=== PATIENT | male | born 1950 | race Caucasian/White ===

== ENCOUNTER 2017-09-09 14:28 | Outpatient (CLI) | payer MEDICARE, OTHER ==
[2017-09-09 12:51] LABS: BASOPHILS % (AUTO) 0.4 %; EOSINOPHILS # (AUTO) 0.2 10^3/uL (0.0-0.7); EOSINOPHILS % (AUTO) 4.2 %; HCT - HEMATOCRIT 38.8 % (42.0-52.0); LYMPHOCYTES # (AUTO) 1.8 10^3/uL (1.5-3.5); LYMPHOCYTES % (AUTO) 30.5 %; MEAN CORPUSCULAR HEMOGLOBIN 31.5 pg (27.0-31.0); MEAN CORPUSCULAR HGB CONC 33.6 g/dL (32.0-36.0); MEAN CORPUSCULAR VOLUME 93.8 fL (80.0-94.0); MEAN PLATELET VOLUME 9.1 fL (7.4-11.4); MONOCYTES # (AUTO) 0.6 10^3/uL (0.0-1.0); MONOCYTES % (AUTO) 9.5 %; NEUTROPHILS # (AUTO) 3.2 10^3/uL (1.5-6.6); NEUTROPHILS % (AUTO) 55.4 %; RED BLOOD COUNT 4.14 10^6/uL (4.70-6.10); RED CELL DISTRIBUTION WIDTH 13.5 % (12.0-15.0); UNCORRECTED WHITE BLOOD COUNT 5.8 x10^3/uL; WHITE BLOOD COUNT 5.8 x10^3/uL (4.8-10.8)
[2017-09-09 13:19] LABS: ALBUMIN/GLOBULIN RATIO 1.3 (1.0-2.2); BILIRUBIN,TOTAL 0.7 mg/dL (0.2-1.0); CALCIUM 9.5 mg/dL (8.5-10.3); CREATININE 0.7 mg/dL (0.6-1.2); POTASSIUM 4.5 mmol/L (3.5-5.0); TOTAL PROTEIN 7.7 g/dL (6.7-8.2); URIC ACID 6.4 mg/dL (2.6-7.2)
[2017-09-09 13:20] LABS: HEMOGLOBIN A1C 0.63 g/dL
== END 2017-09-09 14:29 | disposition home or self-care (01) ==
LOC: LAB.WCP 14:28
PROVIDERS: ATTEND Family Medicine
DX: I10 Essential (primary) hypertension (principal); R74.8 Abnormal levels of other serum enzymes; E11.9 Type 2 diabetes mellitus without complications; E78.5 Hyperlipidemia, unspecified; M25.551 Pain in right hip; M10.9 Gout, unspecified
CPT/HCPCS: 36415; 80053; 83036; 84550; 85025

== ENCOUNTER 2018-03-11 12:35 | Outpatient (CLI) | payer MEDICARE, OTHER ==
--- NOTE | 2018-03-12 22:09 | MRI Report ---
EXAM: MRI CERVICAL SPINE WITHOUT CONTRAST EXAM DATE: 03/11/2018 01:08 PM. CLINICAL HISTORY: Neck pain, bilateral upper extremity numbness, extremity pain. COMPARISONS: CR cervical spine 02/18/2018. TECHNIQUE: Multiplanar, multisequence T1-weighted and fluid-sensitive sequences of the cervical spine without contrast. Other: None. FINDINGS: Neurologic Structures: The visualized posterior fossa structures are unremarkable. No signal abnormal ity in the visualized spinal cord. Alignment: 1-2 mm anterolisthesis of C3 on C4. 2-3 mm retrolisthesis of C6 on C7. Bone Marrow: No gross fractures or bone lesions. No marrow edema. Interspace Levels/Facets: C1-C2: Unremarkable. C2-C3: Left greater than right facet arthropathy. No significant canal narrowing. Mild left foraminal narrowing. C3-C4: Anterolisthesis. Right greater than left uncovertebral hypertrophy. Right greater than left fa cet arthropathy. Mild to moderate right, mild left foraminal narrowing. C4-C5: Disk desiccation. Mild facet arthropathy. No significant canal or foraminal narrowing. C5-C6: Disk desiccation and mild disk height loss. Left greater than right uncovertebral hypertrophy. Mild to moderate left, mild right foraminal narrowing. Mild canal narrowing. C6-C7: Disk desiccation and mild disk height loss. Left greater than right uncovertebral hypertrophy. Moderate left, mild to moderate right foraminal narrowing. Mild canal narrowing. C7-T1: Disk desiccation. Mild facet arthropathy. No significant canal or foraminal narrowing. Musculature: Normal. No edema or fatty atrophy. Other: The paravertebral and prevertebral soft tissues are normal. IMPRESSION: 1. No significant spinal canal narrowing. 2. Grade 1 anterolisthesis of C3 on C4, grade 1 retrolisthesis of C6 on C7. 3. At C3-C4, mild to moderate right, mild left foraminal narrowing secondary to asymmetric facet arth ropathy. 4. At C5-C6, mild to moderate left, mild right foraminal narrowing secondary to asymmetric uncoverteb ral hypertrophy. 5. At C6-C7, moderate left and [id number] right foraminal narrowing secondary to asymmetric unc overtebral hypertrophy. [facility] Referring Provider Line: [phone] SITE ID: [id number]
== END 2018-03-11 12:36 | disposition home or self-care (01) ==
LOC: DI 12:35
PROVIDERS: ATTEND Family Medicine
DX: M43.12 Spondylolisthesis, cervical region (principal); M12.88 Other specific arthropathies, not elsewhere classified, other specified site; M89.48 Other hypertrophic osteoarthropathy, other site
CPT/HCPCS: 72141

== ENCOUNTER 2018-12-21 10:52 | Outpatient (CLI) | payer MEDICARE, OTHER ==
--- NOTE | 2018-12-21 14:37 | XRAY Report ---
Reason: WRIST PAIN, LEFT Procedure Date: 12/21/2018 Accession Number: [id number] / [id number] Procedure: WCP - Wrist 3 View LT CPT Code: FULL RESULT: EXAM: LEFT WRIST RADIOGRAPHY EXAM DATE: 12/21/2018 11:05 AM. CLINICAL HISTORY: Wrist pain, left. COMPARISON: None. TECHNIQUE: 3 views. FINDINGS: Bones: Normal. No fractures or bone lesions. Joints: No dislocation or subluxation. Minor degenerative joint space narrowing of the first CMC. Joint spaces within the wrist appear normal. Soft Tissues: Normal. No soft tissue swelling. IMPRESSION: Normal wrist radiography. [facility]
== END 2018-12-21 10:53 | disposition home or self-care (01) ==
LOC: DI.WCP 10:52
PROVIDERS: ATTEND Family Medicine
DX: M25.532 Pain in left wrist (principal)

== ENCOUNTER 2021-10-23 08:00 | Outpatient (CLI) | payer MEDICARE, OTHER | END 2021-10-23 23:59 | LOC: LAB.N 08:00 | PROVIDERS: ATTEND Physician Assistant Medical | DX: U07.1 COVID-19 (principal) ==

== ENCOUNTER 2021-10-26 08:00 | Outpatient (CLI) | payer MEDICARE, OTHER ==
--- NOTE | 2021-11-02 14:13 | XRAY Report ---
PROCEDURE: Chest 2 View X-Ray INDICATIONS: COUGH TECHNIQUE: 2 view(s) of the chest. COMPARISON: None. FINDINGS: Surgical changes and devices: None. Lungs and pleura: No pleural effusions or pneumothorax. Lungs are clear. Mediastinum: Mediastinal contours are normal. Heart size is normal. Bones and chest wall: No suspicious bony abnormalities. Soft tissues appear unremarkable. IMPRESSION: No acute cardiopulmonary abnormality. Reviewed by: Vinnie Bear MD on 10/26/2021 6:48 PM [facility] Approved by: Vinnie Bear MD on 10/26/2021 6:48 PM [facility] Station ID: [id number]
== END 2021-10-26 23:59 | disposition home or self-care (01) ==
LOC: DI.N 08:00
PROVIDERS: ATTEND Physician Assistant
DX: U07.1 COVID-19 (principal)

== ENCOUNTER 2022-07-02 07:24 | Outpatient (CLI) | payer MEDICARE, OTHER ==
[2022-07-02 12:24] LABS: BASOPHILS % (AUTO) 0.5 %; EOSINOPHILS # (AUTO) 0.5 10^3/uL (0.0-0.7); HGB - HEMOGLOBIN 13.3 g/dL (14.0-18.0); LYMPHOCYTES # (AUTO) 2.1 10^3/uL (1.5-3.5); LYMPHOCYTES % (AUTO) 27.5 %; MEAN CORPUSCULAR HEMOGLOBIN 31.2 pg (27.0-31.0); MEAN CORPUSCULAR HGB CONC 33.3 g/dL (32.0-36.0); MEAN CORPUSCULAR VOLUME 93.9 fL (80.0-94.0); MEAN PLATELET VOLUME 11.3 fL (7.4-11.4); MONOCYTES # (AUTO) 0.8 10^3/uL (0.0-1.0); MONOCYTES % (AUTO) 10.3 %; NEUTROPHILS # (AUTO) 4.3 10^3/uL (1.5-6.6); NEUTROPHILS % (AUTO) 55.3 %; PLT - PLATELET COUNT 198 10^3/uL (130-450); RED BLOOD COUNT 4.26 10^6/uL (4.70-6.10); WHITE BLOOD COUNT 7.8 x10^3/uL (4.8-10.8)
[2022-07-02 13:01] LABS: ALBUMIN 4.2 g/dL (3.2-5.5); ALBUMIN/GLOBULIN RATIO 1.2 (1.0-2.2); ALKALINE PHOSPHATASE 89 IU/L (42-121); ALT ALANINE AMINOTRANSFERASE 24 IU/L (10-60); AST ASPARTATE AMINOTRANSFERASE 25 IU/L (10-42); BILIRUBIN,TOTAL 0.7 mg/dL (0.2-1.0); BUN - BLOOD UREA NITROGEN 19 mg/dL (6-20); CALCIUM 10.1 mg/dL (8.5-10.3); CARBON DIOXIDE - CO2 26 mmol/L (21-32); CHLORIDE 100 mmol/L (101-111); CHOL/HDL RATIO 3.6 (<5.0); CHOLESTEROL 192 mg/dL; CREATININE 0.9 mg/dL (0.6-1.2); GFR - MDRD 83 (>89); GLUCOSE 186 mg/dL (70-100); HDL CHOLESTEROL 53 mg/dL; LDL CHOLESTEROL,CALCULATED 101 mg/dL; LDL/HDL RATIO 1.9 (<3.6); SODIUM 136 mmol/L (135-145); TOTAL PROTEIN 7.7 g/dL (6.7-8.2); TRIGLYCERIDES 189 mg/dL; URIC ACID 6.2 mg/dL (2.6-7.2); VLDL CHOLESTEROL 38 mg/dL
[2022-07-02 13:48] LABS: ESTIMATED AVERAGE GLUCOSE 177 mg/dL (70-100); HEMOGLOBIN A1c% 7.8 % (4.27-6.07)
== END 2022-07-02 07:25 | disposition home or self-care (01) ==
LOC: LAB.N 07:24
PROVIDERS: ATTEND Family Medicine
DX: E11.9 Type 2 diabetes mellitus without complications (principal); E78.5 Hyperlipidemia, unspecified; M10.9 Gout, unspecified; I10 Essential (primary) hypertension
CPT/HCPCS: 36415; 80053; 80061; 83036; 83721; 84550; 85025

== ENCOUNTER 2022-11-21 09:12 | Outpatient (CLI) | payer MEDICARE, OTHER ==
--- NOTE | 2022-11-21 13:06 | XRAY Report ---
PROCEDURE: Shoulder 2 View LT INDICATIONS: PAIN IN LEFT SHOULDER TECHNIQUE: 2 views of the shoulder were acquired. COMPARISON: None. FINDINGS: Bones: No acute fractures or dislocations. No suspicious bony lesions. Visualized ribs appear inta ct. Soft tissues: No suspicious soft tissue calcifications. Possible soft tissue rotator cuff calcifica tion in the subacromial space seen on the scapular view. IMPRESSION: Left shoulder without acute fracture or dislocation. Left acromioclavicular osteoarthros is. Possible sequela of chronic rotator cuff calcific tendinopathy. Reviewed by: Vineet Garcia MD on 11/21/2022 1:04 PM PST Approved by: Vineet Garcia MD on 11/21/2022 1:04 PM PST Station ID: [id number]
== END 2022-11-21 09:13 | disposition home or self-care (01) ==
LOC: DI 09:12
PROVIDERS: ATTEND Family Medicine
DX: M19.012 Primary osteoarthritis, left shoulder (principal)

== ENCOUNTER 2023-04-09 07:45 | Outpatient (CLI) | payer MEDICARE, OTHER ==
[2023-04-09 12:12] LABS: CALCIUM 9.3 mg/dL (8.5-10.3); CREATININE 1.1 mg/dL (0.6-1.2); POTASSIUM 4.8 mmol/L (3.5-5.0)
[2023-04-09 12:25] LABS: ESTIMATED AVERAGE GLUCOSE 171 mg/dL (70-100); HEMOGLOBIN A1c% 7.6 % (4.27-6.07)
[2023-04-09 12:33] LABS: CREATININE,URINE 149.1 mg/dL; MICROALBUM/CREATININE RATIO,UR 32.2 ug/mg (<30.0); MICROALBUMIN,URINE 4.8 mg/dL (0-300.0)
== END 2023-04-09 07:46 | disposition home or self-care (01) ==
LOC: LAB.N 07:45
PROVIDERS: ATTEND Family Medicine
DX: E11.65 Type 2 diabetes mellitus with hyperglycemia (principal)
CPT/HCPCS: 36415; 80048; 82043; 82570; 83036

== ENCOUNTER 2023-07-28 07:29 | Outpatient (CLI) | payer MEDICARE, OTHER ==
[2023-07-28 12:32] LABS: BASOPHILS % (AUTO) 0.4 %; EOSINOPHILS # (AUTO) 0.7 10^3/uL (0.0-0.7); EOSINOPHILS % (AUTO) 9.2 %; HGB - HEMOGLOBIN 13.3 g/dL (14.0-18.0); LYMPHOCYTES % (AUTO) 28.1 %; MEAN CORPUSCULAR HEMOGLOBIN 30.9 pg (27.0-31.0); MEAN CORPUSCULAR HGB CONC 32.4 g/dL (32.0-36.0); MEAN CORPUSCULAR VOLUME 95.3 fL (80.0-94.0); MEAN PLATELET VOLUME 10.9 fL (7.4-11.4); MONOCYTES # (AUTO) 0.7 10^3/uL (0.0-1.0); MONOCYTES % (AUTO) 9.8 %; NEUTROPHILS # (AUTO) 3.8 10^3/uL (1.5-6.6); NEUTROPHILS % (AUTO) 52.2 %; PLT - PLATELET COUNT 178 10^3/uL (130-450); RED CELL DISTRIBUTION WIDTH 13.4 % (12.0-15.0); WHITE BLOOD COUNT 7.3 x10^3/uL (4.8-10.8)
[2023-07-28 13:00] LABS: ESTIMATED AVERAGE GLUCOSE 146 mg/dL (70-100); HEMOGLOBIN A1c% 6.7 % (4.27-6.07); THYROID STIMULATING HORMONE 3.38 uIU/mL (0.34-5.60)
[2023-07-28 13:04] LABS: ALBUMIN 4.4 g/dL (3.2-5.5); ALBUMIN/GLOBULIN RATIO 1.5 (1.0-2.2); ALKALINE PHOSPHATASE 100 IU/L (42-121); ALT ALANINE AMINOTRANSFERASE 18 IU/L (10-60); AST ASPARTATE AMINOTRANSFERASE 21 IU/L (10-42); BILIRUBIN,TOTAL 0.4 mg/dL (0.2-1.0); BUN - BLOOD UREA NITROGEN 21 mg/dL (6-20); CALCIUM 10.2 mg/dL (8.5-10.3); CARBON DIOXIDE - CO2 28 mmol/L (21-32); CHLORIDE 103 mmol/L (101-111); CHOL/HDL RATIO 3.1 (<5.0); CHOLESTEROL 160 mg/dL; CREATININE 0.9 mg/dL (0.6-1.3); GFR - MDRD 83 (>89); GLUCOSE 125 mg/dL (74-104); HDL CHOLESTEROL 52 mg/dL; LDL CHOLESTEROL,CALCULATED 81 mg/dL; LDL/HDL RATIO 1.6 (<3.6); POTASSIUM 4.8 mmol/L (3.5-4.5); SODIUM 136 mmol/L (135-145); TOTAL PROTEIN 7.4 g/dL (6.4-8.9); TRIGLYCERIDES 133 mg/dL (48-352); VLDL CHOLESTEROL 27 mg/dL
[2023-07-28 13:06] LABS: MICROALBUM/CREATININE RATIO,UR 35.4 ug/mg (<30.0); MICROALBUMIN,URINE 3.4 mg/dL
== END 2023-07-28 07:30 | disposition home or self-care (01) ==
LOC: LAB.N 07:29 → EDSTATUS 09:27
PROVIDERS: ATTEND Family Medicine
DX: I10 Essential (primary) hypertension (principal); E11.65 Type 2 diabetes mellitus with hyperglycemia; M16.11 Unilateral primary osteoarthritis, right hip; E87.5 Hyperkalemia; T46.4X5A Adverse effect of angiotensin-converting-enzyme inhibitors, initial encounter; Z12.5 Encounter for screening for malignant neoplasm of prostate; E78.5 Hyperlipidemia, unspecified; M10.9 Gout, unspecified
CPT/HCPCS: 36415; 80053; 80061; 82043; 82570; 83036; 84443; 85025; G0103; 83721; 84153

== ENCOUNTER 2024-02-03 07:33 | Outpatient (CLI) | payer MEDICARE, OTHER ==
[2024-02-03 12:26] LABS: CREATININE,URINE 118.9 mg/dL; MICROALBUM/CREATININE RATIO,UR 98.4 ug/mg (<30.0); MICROALBUMIN,URINE 11.7 mg/dL
[2024-02-03 12:29] LABS: ESTIMATED AVERAGE GLUCOSE 166 mg/dL (70-100); HEMOGLOBIN A1c% 7.4 % (4.27-6.07)
[2024-02-03 12:32] LABS: CALCIUM 10.5 mg/dL (8.5-10.3)
== END 2024-02-03 07:34 | disposition home or self-care (01) ==
LOC: LAB.N 07:33
PROVIDERS: ATTEND Family Medicine
DX: E11.65 Type 2 diabetes mellitus with hyperglycemia (principal)
CPT/HCPCS: 36415; 80048; 82043; 82570; 83036